=== PATIENT | female | born 1985 | race Caucasian/White ===

== ENCOUNTER → 2019-05-12 09:11 | Outpatient (CLI) | payer MEDICAID, SELFPAY ==
[2019-05-12 10:49] LABS: Anion Gap 5 (5-15); BUN 17 mg/dL (7-18); BUN/Creat Ratio 25.4 RATIO (10-20); Calcium,Total 9.3 mg/dL (8.5-10.1); Chloride 111 mmol/L (98-107); Cholesterol 154 mg/dL (200); Creatinine, Serum 0.67 mg/dL (0.55-1.02); EST Glomerular Filtration Rate 107 mL/min (>60); Est Glom Filt Rate - Afr Amer 130 mL/min (>60); Free T3 2.6 pg/mL (2.18-3.98); Glucose 94 mg/dL (74-106); High Density Lipoprotein 39 mg/dL; Potassium 4.4 mmol/L (3.5-5.1); Sodium Level 140 mmol/L (136-145); T4 Free Direct 0.74 ng/dL (0.76-1.46); Triglycerides 102 mg/dL; Very Low Density Lipoprotein 20 mg/dL (5-40)
== END ==
LOC: MTLAB 09:20
PROVIDERS: PCP Family Medicine; Referring Provider Family Medicine; Visit Provider Family Medicine
DX: R23.2 Flushing (principal); Z13.220 Encounter for screening for lipoid disorders; Z13.1 Encounter for screening for diabetes mellitus
CPT/HCPCS: 36415; 80048; 80061; 84439; 84443; 84481

== ENCOUNTER 2019-05-19 02:10 | Emergency (ER) | payer OTHER, SELFPAY ==
[2019-05-19 02:11] VITALS: BP 137/90; PULSE 85; RESP 14; TEMP 37; O2SAT 100; BMI 42.1
--- NOTE | 2019-05-19 02:20 | EKG12_ITS ---
Test Reason : SYNCOPE Blood Pressure : / mmHG Vent. Rate : 082 BPM Atrial Rate : 082 BPM P-R Int : 180 ms QRS Dur : 082 ms QT Int : 392 ms P-R-T Axes : 025 031 013 degrees QTc Int : 457 ms Normal sinus rhythm Normal ECG Confirmed by MOE EISENBERG MD ([id number]), editor dictionary JUANITA VINCENT ([id number]) on 05/22/2019 3:40:52 PM Referred By: KAVIN Confirmed By:MOE EISENBERG MD
--- NOTE | 2019-05-19 02:20 | ED.DCSUM_ITS ---
History of Present Illness Chief Complaint: General Illness Informant: Patient Onset: Today Current Severity: Moderate Maximum Severity: Moderate Narrative: Patient presents after syncopal episode at home. She states she went to bed around 11:00 last night and felt fine. She woke up approximately 45 minutes ago and felt very nauseated. She went to the bathroom and knelt in front of the toilet thinking she was going to vomit. She states she remembers feeling lightheaded, cold, sweaty. She states the next thing she knows she woke up on the floor and had urinated on herself. She was able to get up and get back to bed but still felt very queasy and weak. She denies recent illness. She states she has had slight increase in headaches recently which she attributed to increased stress. She been taking occasional naproxen for headaches. - Past Medical History (1) Sleep apnea Status: Chronic (2) H/O: hysterectomy Status: Chronic Past Medical History - Allergies and Home Meds Allergies/Adverse Reactions: Allergies Sulfa (Sulfonamide Antibiotics) Adverse Reaction (Mild, Verified 05/19/19 02:17) Nausea/Vom/Diarrhea Primary Care Physician: Juan Gil MD [Primary Care Provider] - As Needed Prior records reviewed: Yes Surgical History: hysterectomy Lives: With Family Smoking Status: Never smoker Review of Systems General: Denies: Chills, Fever Eyes: Denies: Visual changes - bilaterally ENT: Denies: Bilateral ear pain Cardiovascular: Denies: Chest pain, Palpitations Respiratory: Denies: Dyspnea, Cough Gastrointestinal: Reports: Abdominal pain, Nausea. Denies: Vomiting, Diarrhea Genitourinary: Denies: Dysuria Musculoskeletal: Denies: Extremity Pain Skin: Denies: Rash Neurological: Reports: Weakness. Denies: Headache Hematologic: Denies: Easy bruising, Easy bleeding Allergy: Denies: Uticaria Physical Exam Vital Signs/Narrative: Vital Signs Temp Pulse Resp BP Pulse Ox 05/19/19 02:11 98.6 F 85 14 137/90 H 100 Inital Vital Signs reviewed: Yes General: Well nourished, Well developed Head: Normocephalic ENT: Moist mucous membranes Neck: Supple Cardiovascular: Regular rate, Regular rhythm Respiratory: No distress, CTA bilaterally Abdomen: Soft, Nontender, Hyperactive bowel sounds Extremities: Nontender Skin: Normal color Neurological: Alert, Oriented x3, - - No focal deficits Psychological: Normal affect Diagnostic/Tx/Re-eval Laboratory Results 05/19/19 05/19/19 02:37 02:37 WBC 11.0 RBC 4.11 L Hgb 13.8 Hct 39.3 MCV 95.6 MCH 33.6 H MCHC 35.1 RDW Std Deviation 40.8 RDW Coeff of Ancelmo 11.8 Plt Count 293 MPV 10.2 Immature Gran % (Auto) 0.400 Neut % (Auto) 68.6 Lymph % (Auto) 23.6 [place] % (Auto) 5.7 Eos % (Auto) 1.2 Baso % (Auto) 0.5 Absolute Neuts (auto) 7.6 Absolute Lymphs (auto) 2.60 Nucleated RBC % 0 Sodium 137 Potassium 3.6 Chloride 108 H Carbon Dioxide 24.0 Anion Gap 5 BUN 20 H Creatinine 0.94 Estim Creat Clear Calc 75.88 Est GFR (MDRD) Af Amer 87 Est GFR (MDRD) Non-Af 72 BUN/Creatinine Ratio 21.2 H Glucose 89 Calcium 8.8 Total Bilirubin 0.40 Direct Bilirubin 0.13 AST 21 ALT 31 Alkaline Phosphatase 104 Total Protein 7.9 Albumin 4.0 Globulin 3.9 Lipase 101 - EKG Initial EKG Interpretation: Sinus Rhythm - Sinus 82 with no acute ischemia. - Medical Decision Making Patient was given IV fluids and Zofran followed by dose of Toradol for headache. On repeat evaluation she states the headache is completely resolved with the Toradol. At this time she would prefer just to go home. She is been up ambulating to the restroom without difficulty. She does complain of a sloshing feeling in her stomach. I will write her prescription for some Reglan at home to help increase transit time to the stomach to see if this will help her symptoms. She states she gets this fairly often. She will also be given prescription for Toradol tabs at home. ED Disposition - Plan for ED Patient: Disposition: Home or Assisted Living Diagnosis: Vasovagal syncope Instructions: SYNCOPE, Vasovagal Prescriptions: Metoclopramide [Reglan] 10 mg PO 4X/DAY PRN #20 tablet PRN Reason: Nausea Ketorolac [Toradol] 10 mg PO Q6H PRN #20 tablet PRN Reason: Pain Score 4-10/10 Referrals: Juan Gil MD [Primary Care Provider] - As Needed
--- NOTE | 2019-05-19 02:30 | ED.RN ---
NO OLD EKGS IN MUSE
[2019-05-19 02:44] LABS: Absolute Neutrophil Count 7.6 X10^3/uL (2.0-7.7); Basophil# 0.06 X10^3/uL; Basophil% 0.5 % (0-1); Eosinophil# 0.13 X10^3/uL; Eosinophils% 1.2 % (0-5); Hematocrit 39.3 % (37-47); Hemoglobin 13.8 g/dL (12.0-15.0); Lymphocyte % 23.6 % (19-41); Mean Corp Hgb Conc 35.1 g/dL (32-36); Mean Corpuscular Hgb 33.6 pg (27.0-32.0); Mean Corpuscular Volume 95.6 fL (81-99); Mean Platelet Vol. 10.2 fl (6.2-12.0); Monocyte# 0.63 X10^3/uL; Monocyte% 5.7 % (0-10); NRBC Flagged by Analyzer 0 % (0-5); Neutrophil # 7.55 X10^3/uL (2.7-7.7); Neutrophil % 68.6 % (47-70); Platelet Count 293 K/mm3 (150-450); RBC Distribution Width CV 11.8 % (11.6-14.6); RBC Distribution Width SD 40.8 fl (35.1-43.9); Red Blood Count 4.11 M/mm3 (4.2-5.4)
[2019-05-19] MEDS: 0.9% Normal Saline 1,000 ML 1000 ML IV (02:53)
[2019-05-19] MEDS: Ondansetron 4 MG/2 ML Vial IV (02:54)
[2019-05-19 03:08] LABS: AST(SGOT) 21 U/L (15-37); Alanine Aminotransfer ALT/SGPT 31 U/L (13-56); Alkaline Phosphatase 104 U/L (45-117); Anion Gap 5 (5-15); BUN 20 mg/dL (7-18); BUN/Creat Ratio 21.2 RATIO (10-20); Bilirubin, Direct 0.13 mg/dL (0.00-0.30); Calcium,Total 8.8 mg/dL (8.5-10.1); Chloride 108 mmol/L (98-107); Creatinine, Serum 0.94 mg/dL (0.55-1.02); EST Glomerular Filtration Rate 72 mL/min (>60); Est Glom Filt Rate - Afr Amer 87 mL/min (>60); Estimated Creatinine Clearance 75.88 ml/min; Globulin 3.9 g/dL (2.2-4.2); Glucose 89 mg/dL (74-106); Lipase 101 U/L (73-393); Potassium 3.6 mmol/L (3.5-5.1); Protein, Total 7.9 g/dL (6.4-8.2); Sodium Level 137 mmol/L (136-145)
[2019-05-19] MEDS: Ketorolac 30 MG/ML Syringe IV (03:23)
[2019-05-19 04:10] VITALS: PULSE 86; RESP 16; O2SAT 98
== END 2019-05-19 04:10 | disposition home or self-care (01) ==
PROVIDERS: Emergency Provider Emergency Medicine; PCP Family Medicine
DX: R55 Syncope and collapse (principal); R10.9 Unspecified abdominal pain; G47.30 Sleep apnea, unspecified
CPT/HCPCS: 80048; 80076; 83690; 85025; 93005; 96361; 96374; 96375; 99285; J7030; A4216; J2405

== ENCOUNTER 2019-12-24 19:44 | Emergency (ER) | payer MEDICAID, SELFPAY ==
[2019-12-24 19:48] VITALS: BP 138/95; PULSE 82; RESP 15; TEMP 36.4; O2SAT 98; BMI 44.6
--- NOTE | 2019-12-24 20:22 | ED.DCSUM_ITS ---
History of Present Illness Chief Complaint: Sore Throat Informant: Patient Onset: Yesterday Context: Gradual Onset Timing: Continuous Quality: sore Location: throat, worse on right Current Severity: Moderate Maximum Severity: Moderate Worsened by: Swallowing Associated Symptoms: Headache, Myalgias. Negative for: Nasal Congestion, Sinus Pressure, Nausea, Vomiting, Shortness of Breath, Chest Pain Narrative: Healthy 34-year-old who saw a white patch in the back of her throat and is concerned she may have strep. No fevers or chills. No coughing. Patient presents during the national coronavirus emergency declaration/pandemic. She denies any known contact with anyone infected with COVID-19. She denies traveling out of the immediate area recently. - Past Medical History (1) Depression Status: Chronic (2) Sleep apnea Status: Chronic Past Medical History - Allergies and Home Meds Allergies/Adverse Reactions: Allergies Sulfa (Sulfonamide Antibiotics) Adverse Reaction (Mild, Verified 12/24/19 19:44) Nausea/Vom/Diarrhea Primary Care Physician: Juan Gil MD [Primary Care Provider] - Surgical History: hysterectomy Lives: With Family Smoking Status: Never smoker Review of Systems General: Denies: Chills, Fever, Sweats Eyes: Denies: Visual changes - bilaterally, Diplopia ENT: Reports: Sore throat. Denies: Bilateral ear pain, Rhinorrhea Cardiovascular: Denies: Chest pain, Palpitations Respiratory: Denies: Dyspnea, Cough, Dyspnea on exertion Gastrointestinal: Denies: Abdominal pain, Nausea, Vomiting, Diarrhea, Melena, Hematochezia Genitourinary: Denies: Dysuria, Hematuria, Frequency Musculoskeletal: Reports: Myalgias. Denies: Neck pain, Back pain, Extremity Pain Skin: Denies: Rash, Wounds Neurological: Denies: Headache, Weakness, Numbness Physical Exam Vital Signs/Narrative: Vital Signs Temp Pulse Resp BP Pulse Ox 12/24/19 19:48 97.5 F L 82 15 138/95 H 98 Inital Vital Signs reviewed: Yes General: Well nourished, Well developed, - - Well-appearing no distress Head: Normocephalic, Atraumatic Eyes: Perrl, EOMI Nose: Normal Inspection, No Rhinorrhea Mouth/Throat: Normal Inspection, Airway Patent, Posterior Oropharyngeal Erythema Tonsils: Right Tonsilar Erythema, Left Tonsilar Erythema, Right Tonsilar Exudates Neck: Supple, No Meningismus, Anterior Lymphadenopathy - Mild, right submandibular. Negative for: Posterior Lymphadenopathy Respiratory: No distress Skin: Normal color, No rash, No Trauma Neurological: Alert, Oriented x3, Cranial nerves II-XII grossly intact, Normal Strength, Normal Sensation, Normal Gait Psychological: Normal affect, Normal Mood Diagnostic/Tx/Re-eval - Medical Decision Making Rapid strep returned negative. The swab was performed myself, which was a high- quality swab including the area of exudate. She was given dose of ibuprofen, Decadron, and a culture is sent. Suspect viral etiology, less likely mono or diphtheria. ED Disposition - Plan for ED Patient: Disposition: Home or Assisted Living Diagnosis: Exudative tonsillitis Instructions: ED Tonsillitis Referrals: Juan Gil MD [Primary Care Provider] - 3-5 Days if not improving Additional Instructions: Strep culture is sent. Rapid test is negative. Ibuprofen, sore throat sprays as needed. Stay hydrated.
[2019-12-24] MEDS: dexAMETHasone 4 MG Tablet 8 MG PO (20:39)
[2019-12-24] MEDS: Ibuprofen 600 MG Tablet PO (20:39)
[2019-12-24 21:31] VITALS: RESP 16
== END 2019-12-24 21:32 | disposition home or self-care (01) ==
PROVIDERS: Emergency Provider Emergency Medicine; PCP Family Medicine
DX: J03.90 Acute tonsillitis, unspecified (principal); F32.9 Major depressive disorder, single episode, unspecified; G47.30 Sleep apnea, unspecified; Z79.899 Other long term (current) drug therapy
CPT/HCPCS: 87077; 87880; 99282

== ENCOUNTER → 2020-01-01 16:40 | Outpatient (CLI) | payer MEDICAID, SELFPAY ==
[2019-12-24 19:48] VITALS: BMI 44.6
== END ==
PROVIDERS: PCP Family Medicine; Visit Provider Family Medicine
DX: N39.0 Urinary tract infection, site not specified (principal)
CPT/HCPCS: 87086; 87088

== ENCOUNTER → 2020-08-23 08:37 | Outpatient (CLI) | payer MEDICAID, SELFPAY ==
[2020-08-23 10:44] LABS: AST(SGOT) 18 U/L (15-37); Alanine Aminotransfer ALT/SGPT 28 U/L (13-56); Albumin, Serum 4.1 g/dL (3.2-5.0); Alkaline Phosphatase 105 U/L (45-117); Anion Gap 6 (5-15); BUN 12 mg/dL (7-18); BUN/Creat Ratio 17.6 RATIO (10-20); Chloride 106 mmol/L (98-107); Cholesterol 191 mg/dL (200); Creatinine, Serum 0.68 mg/dL (0.55-1.02); EST Glomerular Filtration Rate 104 mL/min (>60); Est Glom Filt Rate - Afr Amer 126 mL/min (>60); Glucose 85 mg/dL (74-106); High Density Lipoprotein 45 mg/dL; Potassium 3.6 mmol/L (3.5-5.1); Protein, Total 8.1 g/dL (6.4-8.2); Sodium Level 139 mmol/L (136-145); Thyroid Stim Hormone (TSH) 1.29 uIU/mL (0.358-3.74); Triglycerides 130 mg/dL; Very Low Density Lipoprotein 26 mg/dL (5-40)
== END ==
PROVIDERS: PCP Family Medicine; Referring Provider Family Medicine; Visit Provider Family Medicine
DX: G43.909 Migraine, unspecified, not intractable, without status migrainosus (principal); E66.9 Obesity, unspecified
CPT/HCPCS: 36415; 80053; 80061; 84443

== ENCOUNTER 2020-10-27 16:29 | Emergency (ER) | payer MEDICAID, SELFPAY ==
[2020-10-27 16:33] VITALS: BP 147/67; PULSE 111; RESP 16; TEMP 36.7; O2SAT 100; BMI 44.2
[2020-10-27 18:22] LABS: Absolute Lymphocyte Count 1.25 X10^3/uL (0.83-4.51); Absolute Neutrophil Count 5.5 X10^3/uL (2.0-7.7); Basophil# 0.03 X10^3/uL; Basophil% 0.4 % (0-1); Eosinophil# 0.06 X10^3/uL; Eosinophils% 0.8 % (0-5); Hematocrit 47.7 % (37-47); Lymphocyte # 1.25 X10^3/ul (0.83-4.51); Lymphocyte % 17.3 % (19-41); Mean Corp Hgb Conc 33.5 g/dL (32-36); Mean Corpuscular Hgb 32.8 pg (27.0-32.0); Mean Corpuscular Volume 97.7 fL (81-99); Mean Platelet Vol. 9.7 fl (6.2-12.0); Monocyte# 0.35 X10^3/uL; Monocyte% 4.9 % (0-10); NRBC Flagged by Analyzer 0 % (0-5); Neutrophil % 76.3 % (47-70); Platelet Count 246 K/mm3 (150-450); RBC Distribution Width CV 12.3 % (11.6-14.6); RBC Distribution Width SD 44.6 fl (35.1-43.9); Red Blood Count 4.88 M/mm3 (4.2-5.4); White Blood Count 7.2 K/mm3 (4.4-11.0)
[2020-10-27 18:34] LABS: Anion Gap 6 (5-15); BUN 11 mg/dL (7-18); BUN/Creat Ratio 15.4 RATIO (10-20); Calcium,Total 8.9 mg/dL (8.5-10.1); Chloride 103 mmol/L (98-107); Creatinine, Serum 0.72 mg/dL (0.55-1.02); EST Glomerular Filtration Rate 98 mL/min (>60); Est Glom Filt Rate - Afr Amer 119 mL/min (>60); Estimated Creatinine Clearance 94.17 ml/min; Glucose 109 mg/dL (74-106); Magnesium 2.3 mg/dL (1.6-2.6); Potassium 3.6 mmol/L (3.5-5.1); Sodium Level 138 mmol/L (136-145)
[2020-10-27] MEDS: 0.9% Normal Saline 1,000 ML 999 ML IV (18:47)
[2020-10-27] MEDS: Ondansetron 4 MG/2 ML Vial IV (18:49)
--- NOTE | 2020-10-27 19:07 | EDS_ITS ---
HPI History of Present Illness Chief Complaint: General Illness Narrative Narrative: Patient is a 35-year-old female who states she tested positive for Covid about 6 days ago. She states she is feeling tired and fatigued and has had bouts of nausea and vomiting. She states that she has had a few bouts of passing out when she throws up which she states can be normal for her. However based on her Covid diagnosis and persistent nausea her was concerned and had her brought in for evaluation [facility] Medical History Anxiety Migraine Home Medications montelukast 10 mg PO DAILY 12/24/19 [History Last Taken 12/23/19] omeprazole 40 mg PO DAILY 12/24/19 [History Last Taken 12/23/19] sumatriptan succinate 50 mg PO PRN PRN 12/24/19 [History Last Taken Unknown] dexamethasone [Decadron] 6 mg PO DAILY #7 tab 10/27/20 [Rx Last Taken Unknown] ondansetron 4 mg PO Q8H PRN 7 Days #21 tab 10/27/20 [Rx Last Taken Unknown] venlafaxine 150 mg PO DAILY 10/27/20 [History Last Taken Unknown] Allergy/AdvReac Type Severity Reaction Status Date / Time Sulfa (Sulfonamide AdvReac Mild Nausea/Vom/ Verified 10/27/20 16:33 Antibiotics) Diarrhea Social History Smoking Status: Never smoker [facility] ED Constitutional Constitutional ED: Reports chills, fever(s) and subjective ENT ENT ED: Reports sore throat Cardiovascular Cardiovascular: Denies chest pain or palpitations Respiratory/Chest Respiratory/Chest: Reports cough Gastrointestinal Gastrointestinal: Reports nausea and vomiting; Denies abdominal pain Genitourinary Genitourinary ED: Denies dysuria Musculoskeletal Musculoskeletal: Reports myalgias Integumentary Denies rash Neurologic Neurologic: Denies headache(s) EXAM Physical Exam Const Vital Signs: 10/27/20 16:33 10/27/20 18:18 Temperature 98.1 F Temperature Source Oral Pulse Rate 111 H Respiratory Rate 16 Respiratory Effort Normal Non-Labored Respiratory Pattern Normal Blood Pressure 147/67 H Blood Pressure Mean 93 Pulse Ox 100 Oxygen Delivery Method Room Air Positive well nourished and well developed General Appearance ED: well developed HEENT HEENT Narrative: Mucous membranes are slightly dry and tacky without airway edema or compromise Eyes PERRL and EOMs intact bilaterally Neck supple Lymph Lymphatic Narrative: Positive anterior cervical lymphadenopathy noted Chest Wall inspection of chest normal Resp normal respiratory effort and clear to auscultation bilaterally Cardio regular rate, regular rhythm and no murmurs GI GI Narrative: Abdomen is soft nontender nondistended with hyperactive bowel sounds no voluntary guarding or rigidity Extremity normal to inspection Neuro oriented x3 and CN's II-XII intact bilaterally Sensorium / Orientation: alert Psych mental status grossly normal Skin no rashes or lesions noted Skin Narrative: Skin turgor is normal MDM MDM MDM Narrative Medical decision making narrative: Patient presented to the ER afebrile and in no acute distress with a soft nonsurgical abdomen. Her symptoms are consistent with Covid and as she is not any type of respiratory distress I do not feel she needs admitted. Based on her reports of vomiting I did elect to check basic labs to make sure electrolytes were not grossly abnormal. Work-up revealed no acute finding. Therefore at this time after hydration patient is safe for discharge home with symptomatic medication. Lab Data Labs: Laboratory Results - last 24 hr 10/27/20 10/27/20 18:10 18:10 WBC 7.2 RBC 4.88 Hgb 16.0 H Hct 47.7 H MCV 97.7 MCH 32.8 H MCHC 33.5 RDW Std Deviation 44.6 H RDW Coeff of Ancelmo 12.3 Plt Count 246 MPV 9.7 Immature Gran % (Auto) 0.300 Neut % (Auto) 76.3 H Lymph % (Auto) 17.3 L [place] % (Auto) 4.9 Eos % (Auto) 0.8 Baso % (Auto) 0.4 Absolute Neuts (auto) 5.5 Absolute Lymphs (auto) 1.25 Nucleated RBC % 0 Sodium 138 Potassium 3.6 Chloride 103 Carbon Dioxide 29.0 Anion Gap 6 BUN 11 Creatinine 0.72 Estim Creat Clear Calc 94.17 Est GFR (MDRD) Af Amer 119 Est GFR (MDRD) Non-Af 98 BUN/Creatinine Ratio 15.4 Glucose 109 H Calcium 8.9 Magnesium 2.3 Discharge Plan Triage Chief Complaint: General Illness ED Provider: Destin Milner Dx/Rx/DC Orders Clinical Impression: COVID, Nausea & vomiting Instructions: Coronavirus Disease 2019 (COVID-19): Caring for Yourself or Others Prescriptions: New dexamethasone [Decadron] 6 mg tablet 6 mg PO DAILY Qty: 7 RF: 0 ondansetron 4 mg tablet,disintegrating 4 mg PO Q8H PRN (Reason: nausea and vomiting) 7 Days Qty: 21 RF: 0 No Action sumatriptan succinate 50 MG tablet 50 mg PO PRN PRN (Reason: Headache) RF: 0 omeprazole 40 MG capsule,delayed release(DR/EC) 40 mg PO DAILY RF: 0 montelukast 10 MG tablet 10 mg PO DAILY RF: 0 venlafaxine 150 mg capsule,extended release 24hr 150 mg PO DAILY RF: 0 Primary Care Provider: Juan Gil Referrals: Juan Gil MD [Primary Care Provider] - 1 Week if not improving Disposition Disposition: Home, Self Care
[2020-10-27 20:06] VITALS: BP 116/74; PULSE 81; RESP 16; RESP 18; TEMP 36.1; O2SAT 99
== END 2020-10-27 20:07 | disposition home or self-care (01) ==
PROVIDERS: Emergency Provider Emergency Medicine; PCP Family Medicine
DX: U07.1 COVID-19 (principal); R11.2 Nausea with vomiting, unspecified; F41.9 Anxiety disorder, unspecified; G43.909 Migraine, unspecified, not intractable, without status migrainosus; Z79.899 Other long term (current) drug therapy
CPT/HCPCS: 80048; 83735; 85025; 96361; 96374; 99284; J7030; A4216; J2405

== ENCOUNTER → 2020-11-04 14:58 | Outpatient (CLI) | payer MEDICAID, SELFPAY ==
[2020-11-04 17:44] LABS: Hematocrit 44.7 % (37-47); Hemoglobin 15.3 g/dL (12.0-15.0); Mean Corp Hgb Conc 34.2 g/dL (32-36); Mean Corpuscular Hgb 32.4 pg (27.0-32.0); Mean Corpuscular Volume 94.7 fL (81-99); Mean Platelet Vol. 10.5 fl (6.2-12.0); Platelet Count 390 K/mm3 (150-450); RBC Distribution Width CV 11.9 % (11.6-14.6); RBC Distribution Width SD 41.4 fl (35.1-43.9); Red Blood Count 4.72 M/mm3 (4.2-5.4); White Blood Count 11.3 K/mm3 (4.4-11.0)
[2020-11-04 17:55] LABS: ALB/GLOB Ratio 0.9 RATIO (0.9-2.4); AST(SGOT) 31 U/L (15-37); Alanine Aminotransfer ALT/SGPT 78 U/L (13-56); Alkaline Phosphatase 109 U/L (45-117); Anion Gap 7 (5-15); BUN 12 mg/dL (7-18); BUN/Creat Ratio 19.3 RATIO (10-20); Calcium,Total 9.2 mg/dL (8.5-10.1); Chloride 102 mmol/L (98-107); Creatinine, Serum 0.62 mg/dL (0.55-1.02); EST Glomerular Filtration Rate 116 mL/min (>60); Est Glom Filt Rate - Afr Amer 140 mL/min (>60); Globulin 4.5 g/dL (2.2-4.2); Glucose 90 mg/dL (74-106); Potassium 3.4 mmol/L (3.5-5.1); Protein, Total 8.5 g/dL (6.4-8.2); Sodium Level 137 mmol/L (136-145)
== END ==
PROVIDERS: PCP Family Medicine; Referring Provider Nurse Practitioner Family; Visit Provider Nurse Practitioner Family
DX: U07.1 COVID-19 (principal)
CPT/HCPCS: 36415; 80053; 85027

== ENCOUNTER 2021-10-09 10:18 | Outpatient (CLI) | payer MEDICAID, SELFPAY ==
[2021-10-09 14:32] LABS: Anion Gap 7 (5-15); BUN 10 mg/dL (7-18); BUN/Creat Ratio 15.4 RATIO (10-20); Calcium,Total 9.3 mg/dL (8.5-10.1); Chloride 103 mmol/L (98-107); Creatinine, Serum 0.65 mg/dL (0.55-1.02); EST Glomerular Filtration Rate 109 mL/min (>60); Est Glom Filt Rate - Afr Amer 132 mL/min (>60); Follicle Stimulating Hormone 5.5 mIU/mL; Glucose 94 mg/dL (74-106); Luteinizing Hormone 3.7 mIU/mL; Potassium 3.6 mmol/L (3.5-5.1); Sodium Level 138 mmol/L (136-145)
== END 2021-10-09 23:59 | disposition home or self-care (01) ==
LOC: MFPLAB 10:19
PROVIDERS: PCP Nurse Practitioner Family; Referring Provider Nurse Practitioner Family; Visit Provider Nurse Practitioner Family
DX: R23.2 Flushing (principal)
CPT/HCPCS: 36415; 80048; 83001; 83002

== ENCOUNTER → 2022-06-23 | Outpatient (CLI) | payer MEDICAID, SELFPAY ==
[2022-06-23 18:53] LABS: AST(SGOT) 19 U/L (15-37); Alanine Aminotransfer ALT/SGPT 35 U/L (13-56); Albumin, Serum 4.4 g/dL (3.2-5.0); Alkaline Phosphatase 123 U/L (45-117); Anion Gap 8 (5-15); BUN 12 mg/dL (7-18); Calcium,Total 9.8 mg/dL (8.5-10.1); Chloride 100 mmol/L (98-107); Cholesterol 225 mg/dL (200); EST Glomerular Filtration Rate 99 mL/min (>60); Est Glom Filt Rate - Afr Amer 120 mL/min (>60); Ferritin 367 ng/mL (8-252); Globulin 4.2 g/dL (2.2-4.2); Glucose 102 mg/dL (74-106); High Density Lipoprotein 42 mg/dL; Potassium 3.2 mmol/L (3.5-5.1); Protein, Total 8.6 g/dL (6.4-8.2); Sodium Level 134 mmol/L (136-145); Thyroid Stim Hormone (TSH) 1.41 uIU/mL (0.358-3.74); Triglycerides 253 mg/dL; Very Low Density Lipoprotein 51 mg/dL (5-40)
[2022-06-23 18:57] LABS: Vitamin B12 752 pg/mL (211-911)
[2022-06-23 19:34] LABS: Hemoglobin A1c 5.4 % (3.8-5.6)
[2022-06-26 15:24] LABS: Vitamin D 1,25-Dihydroxy 48.3 pg/mL (24.8-81.5)
== END | disposition home or self-care (01) ==
LOC: MFPLAB 16:49
PROVIDERS: PCP Family Medicine; Visit Provider Family Medicine
DX: F41.1 Generalized anxiety disorder (principal); Z68.41 Body mass index [BMI] 40.0-44.9, adult; K21.9 Gastro-esophageal reflux disease without esophagitis
CPT/HCPCS: 36415; 80053; 80061; 82607; 82652; 82728; 83036; 84443

== ENCOUNTER → 2022-09-14 | Outpatient (CLI) | payer MEDICAID, SELFPAY ==
[2022-09-14 15:57] LABS: Anion Gap 5 (5-15); BUN 14 mg/dL (7-18); BUN/Creat Ratio 19.1 RATIO (10-20); Calcium,Total 9.6 mg/dL (8.5-10.1); Chloride 104 mmol/L (98-107); Creatinine, Serum 0.73 mg/dL (0.55-1.02); EST Glomerular Filtration Rate 95 mL/min (>60); Est Glom Filt Rate - Afr Amer 114 mL/min (>60); Glucose 78 mg/dL (74-106); Potassium 3.8 mmol/L (3.5-5.1); Sodium Level 134 mmol/L (136-145)
== END | disposition home or self-care (01) ==
LOC: MFPLAB 11:31
PROVIDERS: PCP Family Medicine; Visit Provider Family Medicine
DX: E87.6 Hypokalemia (principal)
CPT/HCPCS: 36415; 80048

== ENCOUNTER → 2022-10-29 | Outpatient (CLI) | payer MEDICAID, SELFPAY | END | disposition home or self-care (01) | LOC: SL 20:21 | PROVIDERS: PCP Family Medicine; Referring Provider Nurse Practitioner Acute Care; Visit Provider Nurse Practitioner Acute Care | DX: G47.30 Sleep apnea, unspecified (principal) | CPT/HCPCS: 95811 ==

== ENCOUNTER → 2022-11-23 | Outpatient (CLI) | payer MEDICAID, SELFPAY | END | disposition home or self-care (01) | LOC: SL 08:29 | PROVIDERS: PCP Family Medicine; Visit Provider Nurse Practitioner Acute Care | DX: G47.33 Obstructive sleep apnea (adult) (pediatric) (principal); Z99.89 Dependence on other enabling machines and devices ==

== ENCOUNTER 2024-04-18 07:36 | Emergency (ER) | payer OTHER, SELFPAY ==
[2024-04-18 07:38] VITALS: BP 147/100; PULSE 123; RESP 16; TEMP 37; O2SAT 100; BMI 41.1
--- NOTE | 2024-04-18 07:54 | EX.ED.VIS.UR ---
HPI HPI - URI History of Present Illness Chief Complaint: Shortness of Breath Narrative Narrative: 39-year-old female past medical history of asthma and seasonal allergies, GERD, and anxiety presents with shortness of breath and cough that she has had for at least a week. She states she began coughing about a week ago, and started day for of Augmentin [facility]. She is also on an albuterol inhaler. She states that she feels short of breath and seems to be worsening. She has had subjective fever as well and gets body aches when she has that fever. She notes no improvement after antibiotics. She has not been on steroids for her asthma in the past. She denies any rhinorrhea or sore throat. No exacerbating or alleviating factors. Feels her albuterol inhaler is not working as well. She states that her symptoms are all in her chest. ROS ROS ED ROS Narrative Constitutional: Positive fever, no chills. HEENT: No sore throat. No neck pain. No rhinorrhea. Cardiovascular: No chest pain. No palpitations. No pedal edema. Respiratory: Positive cough, positive shortness of breath. Abdominal: No abdominal pain. No nausea. No vomiting. Genitourinary: No dysuria. No hematuria. Musculoskeletal: Positive myalgias and arthralgias with fever. Neurologic: No headaches. No dizziness. No lightheadedness. Skin: No rash. No change in color. [facility] Medical History Influenza A Anxiety Migraine Home Medications ?Medication ?Instructions ?Recorded ?Last Taken ?Type montelukast 10 mg tablet 10 mg PO DAILY 12/24/19 12/23/19 History omeprazole 40 mg capsule,delayed 40 mg PO DAILY 12/24/19 12/23/19 History release sumatriptan succinate 50 mg tablet 50 mg PO PRN PRN Headache 12/24/19 Unknown History ondansetron 4 mg disintegrating 4 mg PO Q8H PRN nausea and 10/27/20 Unknown Rx tablet vomiting 7 days #21 tabs venlafaxine 150 mg 150 mg PO DAILY 10/27/20 Unknown History capsule,extended release 24 hr hydrochlorothiazide 25 mg tablet 25 mg PO DAILY 10/15/22 Unknown History phentermine 37.5 mg capsule 37.5 mg PO DAILY 10/15/22 Unknown History prednisone 20 mg tablet 40 mg (2 x 20 mg) PO DAILY 7 days 04/18/24 Unknown Rx #14 tabs Allergy/AdvReac Type Severity Reaction Status Date / Time Sulfa (Sulfonamide AdvReac Mild Nausea/Vom/ Verified 02/16/24 13:15 Antibiotics) Diarrhea Social History Smoking Status: Never smoker EXAM Physical Exam Narrative Exam Narrative: Afebrile. Vital signs noted. Nontoxic-appearing. Cardiovascular examination reveals mild tachycardia. Respiratory examination shows no distress, no accessory muscle use. She does have a cough on examination with occasional expiratory wheezing in the right base greater than the left. Moving a good amount of air. Abdomen is soft and nontender with positive bowel sounds. Neurological examination is nonfocal and nonlateralizing. Awake, alert, and appropriate, moving all extremities. Const Vital Signs: 04/18/24 07:38 04/18/24 07:51 04/18/24 08:21 Temperature 98.6 F Temperature Source Oral Pulse Rate 123 H 81 Respiratory Rate 16 17 Respiratory Effort Short of Breath Respiratory Pattern Normal Normal Blood Pressure 147/100 H Blood Pressure Mean 115 Pulse Ox 100 Oxygen Delivery Method Room Air Room Air MDM MDM MDM Narrative Medical decision making narrative: Differential diagnosis does include but not limited to pneumonia versus pneumothorax versus viral syndrome. Her antibiotics may be an effective as this may be a viral syndrome. Her pulse ox is 100% on room air without evidence of hypoxia. While pulmonary embolism is in the differential, her Wells score is low, and it seems to be more of an infectious process that has been ongoing for approximately a week. She will be swabbed for COVID, influenza, and RSV and given an albuterol aerosolized treatment. Chest x-ray in 2 views will be obtained to rule out pneumonia and pneumothorax. History and physical does not support the diagnosis of pneumothorax. On my independent interpretation of her chest x-ray, there is no evidence of pneumonia or pneumothorax. I reviewed the radiology report which confirms my independent interpretation. I reviewed her respiratory swab and it is negative for COVID, influenza, and RSV. Upon repeat examination, she is resting comfortably with her family at the bedside. She is no longer tachycardic. At this point in time, if she can be discharged to follow-up with her primary care provider. She may be having more of an asthma exacerbation as well. She was told with bronchitis that she could call for weeks. She has already been started on antibiotic by [facility] so she was advised to finish this. She will continue to use her albuterol inhaler 1 to 2 puffs every 4-6 hours as needed. I will start her on a steroid burst of 40 mg for the next 7 days as well. Return instructions to the emergency department were reviewed. Disposition is discharged home in stable condition. History & Record Review Discussion w/independent historian: Patient Additional record(s) reviewed:: Prior ED visit Radiography Diagnostic Testing: Clinical Impression(s) from Imaging Studies Chest X-Ray 04/18/24 08:08 IMPRESSION: No acute cardiopulmonary process. Reading Location: [facility] Discharge Plan Triage Chief Complaint: Shortness of Breath ED Provider: Nadeem Mayorga Dx/Rx/DC Orders Clinical Impression: Bronchitis, Asthma Instructions: ED Asthma, Acute (Adult), ED Bronchitis with Wheezing (Adult) Prescriptions: New prednisone 20 mg tablet 40 mg PO DAILY 7 Days Qty: 14 0RF No Action hydrochlorothiazide 25 mg tablet 25 mg PO DAILY phentermine 37.5 mg capsule 37.5 mg PO DAILY Rx Instructions: must administer 30 minutes before or 1-2 hours after breakfast sumatriptan succinate 50 MG tablet 50 mg PO PRN PRN (Reason: Headache) omeprazole 40 MG capsule,delayed release(DR/EC) 40 mg PO DAILY montelukast 10 MG tablet 10 mg PO DAILY venlafaxine 150 mg capsule,extended release 24hr 150 mg PO DAILY Patient Comments: TAKE 1 CAPSULE BY MOUTH EVERY DAY ondansetron 4 mg tablet,disintegrating 4 mg PO Q8H PRN (Reason: nausea and vomiting) 7 Days Qty: 21 0RF Primary Care Provider: Mike Hawley Referrals: Mike Hawley MD [Primary Care Provider] - 1 Week if not improving NOT,DEFINED [Non-Staff] - Activity Restrictions/Additional Instructions: Use your albuterol inhaler 1 to 2 puffs inhaled every 4-6 hours as needed for shortness of breath. Finish your antibiotic that you were given. Start steroid burst for the next 7 days. Return with increased difficulty breathing, new or worsening symptoms. Print Language: Syrian Disposition Disposition: Home, Self Care
--- NOTE | 2024-04-18 08:08 | RAD_ITS ---
EXAM: XR Chest, 2 Views CLINICAL INDICATION: TECHNIQUE: Frontal and lateral views of the chest. COMPARISON: No relevant prior studies available. FINDINGS: LUNGS AND PLEURAL SPACES: Unremarkable. No consolidation. No pneumothorax. HEART: Unremarkable. No cardiomegaly. MEDIASTINUM: Unremarkable. Normal mediastinal contour. BONES/JOINTS: Unremarkable. No acute fracture. RAD/Chest PA and Lateral IMPRESSION: No acute cardiopulmonary process. Reading [facility]
[2024-04-18 08:21] VITALS: PULSE 81; RESP 17
[2024-04-18] MEDS: Albuterol 2.5 MG/3 ML VIAL.NEB. INHALATION (08:21)
[2024-04-18 09:59] VITALS: BP 136/78; PULSE 98; RESP 16; TEMP 37.2; O2SAT 99
== END 2024-04-18 09:59 | disposition home or self-care (01) ==
PROVIDERS: Emergency Provider Emergency Medicine; PCP Family Medicine; Visit Provider Emergency Medicine
DX: R06.02 Shortness of breath (principal); J45.909 Unspecified asthma, uncomplicated; K21.9 Gastro-esophageal reflux disease without esophagitis; Z79.899 Other long term (current) drug therapy
CPT/HCPCS: 71046; 87631; 94640; 99282

== ENCOUNTER → 2024-04-27 | Outpatient (CLI) | payer OTHER, SELFPAY ==
[2024-04-27 10:46] LABS: Absolute Lymphocyte Count 2.41 X10^3/uL (0.83-4.51); Absolute Neutrophil Count 9.3 X10^3/uL (2.0-7.7); Basophil# 0.05 X10^3/uL; Basophil% 0.4 % (0-1); Eosinophils% 0.8 % (0-5); Hematocrit 43.9 % (37-47); Hemoglobin 14.7 g/dL (12.0-15.0); Lymphocyte # 2.41 X10^3/ul (0.83-4.51); Lymphocyte % 19.2 % (19-41); Mean Corp Hgb Conc 33.5 g/dL (32-36); Mean Corpuscular Hgb 32.9 pg (27.0-32.0); Mean Corpuscular Volume 98.2 fL (81-99); Mean Platelet Vol. 10.2 fl (6.2-12.0); Monocyte# 0.59 X10^3/uL; Monocyte% 4.7 % (0-10); NRBC Flagged by Analyzer 0 % (0-5); Neutrophil # 9.29 X10^3/uL (2.7-7.7); Neutrophil % 74.1 % (47-70); Platelet Count 365 K/mm3 (150-450); RBC Distribution Width CV 12.4 % (11.6-14.6); RBC Distribution Width SD 44.4 fl (35.1-43.9); Red Blood Count 4.47 M/mm3 (4.2-5.4); White Blood Count 12.5 K/mm3 (4.4-11.0)
[2024-04-27 11:07] LABS: Vitamin D,25 Hydroxy 24.9 ng/mL
[2024-04-27 11:56] LABS: ALB/GLOB Ratio 0.9 RATIO (0.9-2.4); AST(SGOT) 21 U/L (15-37); Alanine Aminotransfer ALT/SGPT 48 U/L (13-56); Albumin, Serum 3.9 g/dL (3.2-5.0); Alkaline Phosphatase 110 U/L (45-117); Anion Gap 10 (5-15); BUN 13 mg/dL (7-18); BUN/Creat Ratio 17.6 RATIO (10-20); Calcium,Total 9.6 mg/dL (8.5-10.1); Chloride 103 mmol/L (98-107); Cholesterol 176 mg/dL (200); Creatinine, Serum 0.74 mg/dL (0.55-1.02); EST Glomerular Filtration Rate 93 mL/min (>60); Est Glom Filt Rate - Afr Amer 113 mL/min (>60); Globulin 4.4 g/dL (2.2-4.2); Glucose 93 mg/dL (74-106); High Density Lipoprotein 49 mg/dL; Potassium 3.7 mmol/L (3.5-5.1); Protein, Total 8.3 g/dL (6.4-8.2); Sodium Level 137 mmol/L (136-145); Thyroid Stim Hormone (TSH) 0.893 uIU/mL (0.358-3.740); Triglycerides 170 mg/dL; Very Low Density Lipoprotein 34 mg/dL (5-40)
== END | disposition home or self-care (01) ==
LOC: MTLAB 07:47
PROVIDERS: PCP Family Medicine; Referring Provider Family Medicine; Visit Provider Family Medicine
DX: E87.6 Hypokalemia (principal); R53.83 Other fatigue; Z13.220 Encounter for screening for lipoid disorders
CPT/HCPCS: 36415; 80053; 80061; 82306; 84443; 85025

== ENCOUNTER → 2024-06-12 | Outpatient (CLI) | payer OTHER, SELFPAY ==
[2024-06-12 10:41] LABS: Color, Urine Straw (Yellow); Glucose, Dipstick Normal (Normal); Ketone-Dipstick Negative (Negative); Leukocyte Esterase-Dipstick 500 /ul (Negative); Nitrite-Dipstick Negative (Negative); Occult Blood-Urine 250 /ul (Negative); Protein-Dipstick 30 mg/dl (Negative); Specific Gravity, Urine 1.005 (1.002-1.030); Urine Bilirubin Dipstick Negative (Negative); Urine Clarity Sl. Cloudy (Clear); Urine Urobilinogen Normal (Normal); Urine pH 6.5 (5.0 - 8.0)
[2024-06-12 10:53] LABS: White Blood Cells >100 SEEN /hpf (0-5)
[2024-06-12 10:55] LABS: Red Blood Cells-Urine 10-25 SEEN /hpf (0-5)
[2024-06-12 10:56] LABS: Squamous Epithelial Cells - UA 5-10 SEEN /hpf (5-10)
[2024-06-12 10:57] LABS: Bacteria 2+ /hpf (None Seen); Mucous, Urine 1+ /hpf (<or=2+)
== END | disposition home or self-care (01) ==
LOC: LABSPEC 09:22
PROVIDERS: PCP Family Medicine; Visit Provider Nurse Practitioner Family
DX: R30.0 Dysuria (principal)
CPT/HCPCS: 81001; 87077; 87086; 87088; 87186

== ENCOUNTER 2024-12-08 17:07 | Emergency (ER) | payer OTHER, SELFPAY ==
[2024-12-08 17:07] VITALS: BP 197/127; PULSE 102; RESP 20; TEMP 37.1; O2SAT 99; BMI 43.8
[2024-12-08 17:11] VITALS: BP 179/127; PULSE 88; RESP 18; O2SAT 99
--- NOTE | 2024-12-08 19:55 | ED.RN ---
Patient's spouse to the triage desk x2 asking why patients are going back before his . This nurse explained that certain patients may be eligible for a hallway bed and that we currently don't have any room available. This RN then explained that the patient is not eligible for a hallway bed due to having abdominal pain and the need for an actual be and not a chair which is what the hallway beds are. Patient's spouse said the patient should get to decide what they need and then asked what allows the nurse to make that decision. This RN explained that we are trained to assess patients and prioritize them based on the criticality of their illness and the resources we have available. It was explained to the spouse that the patient is toward the top of the list of patients to go back,. Patient continues to argue with this nurse. Security called to triage. Patient's spouse demands to see nursing mechanical supervisor. Charge nurse Rocío called to desk.
--- NOTE | 2024-12-08 19:59 | ED.RN ---
pt's spouse arguing with triage nurse MUSTAPHA Carias. this nurse went to speak with pt's spouse along with MUSTAPHA Carias and security attempting to explain that the er is full. pt spouse complaining about other pt's going back before his , requesting to go to a hallway bed. attempting to explain that the er is full, spouse continued to argue with staff.
[2024-12-08 20:11] LABS: Hematocrit 44.6 % (37-47); Hemoglobin 15.6 g/dL (12.0-15.0); Immature Granulocytes Count 0.040 X10^3/uL (0.0-0.0); Mean Corp Hgb Conc 35.0 g/dL (32-36); Mean Corpuscular Volume 96.1 fL (81-99); Mean Platelet Vol. 10.2 fl (6.2-12.0); NRBC Flagged by Analyzer 0 % (0-5); Platelet Count 359 K/mm3 (150-450); RBC Distribution Width CV 12.4 % (11.6-14.6); RBC Distribution Width SD 43.2 fl (35.1-43.9); Red Blood Count 4.64 M/mm3 (4.2-5.4); White Blood Count 13.4 K/mm3 (4.4-11.0)
[2024-12-08 20:33] LABS: AST(SGOT) 26 U/L (<=31); Alanine Aminotransfer ALT/SGPT 23 U/L (<=34); Albumin, Serum 4.8 g/dL (3.5-5.0); Alkaline Phosphatase 118 U/L (35-104); Anion Gap 17 (5-15); BUN 15 mg/dL (4-19); BUN/Creat Ratio 20.4 RATIO (10-20); Calcium,Total 9.7 mg/dL (7.6-11.0); Carbon Dioxide 21.5 mmol/L (21.0-32.0); Chloride 100 mmol/L (98-108); Estimated Creatinine Clearance 129.27 ml/min (50-250); Globulin 3.4 g/dL (2.2-4.2); Glucose 165 mg/dL (70-99); Lipase 25 U/L (13-75); Potassium 3.1 mmol/L (3.3-5.1)
[2024-12-08 21:05] VITALS: BP 168/111; PULSE 85; RESP 20; TEMP 36.9; O2SAT 98
[2024-12-08 21:22] LABS: Mucous, Urine 0 SEEN /hpf (<or=2+)
[2024-12-08 21:45] LABS: Color, Urine Yellow (Yellow); Glucose, Dipstick Normal (Normal); Ketone-Dipstick Negative (Negative); Leukocyte Esterase-Dipstick 25 /ul (Negative); Nitrite-Dipstick Negative (Negative); Occult Blood-Urine 250 /ul (Negative); Protein-Dipstick 30 mg/dl (Negative); Specific Gravity, Urine 1.020 (1.002-1.030); Urine Bilirubin Dipstick Negative (Negative)
--- NOTE | 2024-12-08 21:51 | EX.ED.DYSGE1 ---
HPI History of Present Illness Chief Complaint: Abd Pain Narrative Narrative: Patient is a 39-year-old female with past medical history anxiety, migraine headache, who presents to the emergency department the chief complaint of abdominal pain. According to the patient earlier today she developed sudden onset of severe abdominal pain on the left lower side. She states that she was at work when this occurred and notes that this took her breath away. She states that she had a hysterectomy in her 20s. She states that she has had ruptured cyst in the past but has not had one in a significant amount of time and states that this does feel similar to this. Patient denies any previous abdominal surgeries. Patient denies any sick contacts. Patient states that the pain has gotten better PFSH [facility] Medical History Non-smoker Influenza A Anxiety Migraine Home Medications ?Medication ?Instructions ?Recorded ?Last Taken ?Type montelukast 10 mg tablet 10 mg PO DAILY 12/24/19 12/23/19 History omeprazole 40 mg capsule,delayed 40 mg PO DAILY 12/24/19 12/23/19 History release sumatriptan succinate 50 mg tablet 50 mg PO PRN PRN Headache 12/24/19 Unknown History ondansetron 4 mg disintegrating 4 mg PO Q8H PRN nausea and 10/27/20 Unknown Rx tablet vomiting 7 days #21 tabs venlafaxine 150 mg 150 mg PO DAILY 10/27/20 Unknown History capsule,extended release 24 hr hydrochlorothiazide 25 mg tablet 25 mg PO DAILY 10/15/22 Unknown History dicyclomine 20 mg tablet 20 mg PO TID PRN abdominal pain 12/08/24 Unknown Rx #20 tabs estradiol 1 mg tablet 1 mg PO DAILY 12/08/24 Unknown History ondansetron 4 mg disintegrating 4 mg PO Q6H PRN nausea and 12/08/24 Unknown Rx tablet vomiting #20 tabs Allergy/AdvReac Type Severity Reaction Status Date / Time Sulfa (Sulfonamide AdvReac Mild Nausea/Vom/ Verified 12/08/24 17:08 Antibiotics) Diarrhea Social History Smoking Status: Never smoker ROS ROS ED ROS Narrative Constitutional: Denies any fevers, chills, headaches Eyes: Denies double vision Cardiovascular: Denies chest pain Respiratory: Shortness of breath Abdomen: Complains of abdominal pain as noted above denies nausea vomiting diarrhea : Denies any urinary symptoms Neurological: Denies any numbness, weakness, tingling Musculoskeletal: Denies back pain Skin: Denies any rashes or lesions EXAM Physical Exam Narrative Exam Narrative: General: Patient was lying in bed rest comfortably did not appear to be in acute distress Head: Atraumatic, normocephalic Eyes: PERRL bilaterally, EOMI bilaterally, no conjunctival injection noted Neck: Soft, supple, trachea midline Cardiovascular: Regular rate and rhythm no murmurs gallops rubs noted Respiratory: Clear to auscultation bilaterally Abdomen: Soft, nondistended, tenderness to palpation left lower quadrant no rebound or guarding on exam Extremities: +5/5 strength noted in the bilateral upper and lower extremities Neurological: Patient follow commands knew that she was at [facility] the year is 2024 Skin: Warm, dry, intact no rashes or lesions noted Const Vital Signs: 12/08/24 17:07 12/08/24 17:11 12/08/24 21:05 Temperature 98.7 F 98.5 F Temperature Source Oral Oral Pulse Rate 102 H 88 85 Respiratory Rate 20 H 18 20 H Blood Pressure 197/127 H 179/127 H 168/111 H Blood Pressure Mean 150 144 130 Pulse Ox 99 99 98 Oxygen Delivery Method Room Air Room Air Room Air MDM MDM MDM Narrative Medical decision making narrative: Patient is a 39-year-old female who presented to the emergency department the chief complaint of abdominal pain. On the differential diagnose includes but not limited to diverticulitis, perforated diverticulum, bowel obstruction, ruptured cyst, ectopic , ovarian torsion, AAA. Once workup is obtained reviewed she will be reevaluated. Patient given IV fluids, morphine Zofran. Patient's patient's CBC reviewed which showed a leukocytosis of 13,000 this is likely reactive, he was stable at 15.6, plate count 359. Patient sodium normal 139, [place] was low at 3.1 indicating hypokalemia she was given 40 mill equivalents of oral supplementation here in the emergency department. Creatinine normal at 0.73. Patient's AST and ALT are 26 and 23 respectively lipase was normal at 25. Patient urinalysis showed 250 blood, negative nitrites, 25 leukocyte esterase 5-10 white cells with 1+ bacteria however this appears to be a contaminated sample at 1025 squamous epithelial cells she has no urinary symptoms associated with this. Patient CT ab pelvis with IV contrast showed evidence of cystitis and left ureteritis/pyelitis. No discrete evidence of pyelonephritis although this is primarily a clinical diagnosis correlate with laboratory/urinalysis findings that this does not align with this. Patient has no CVA tenderness on exam again. She does not have any urinary symptoms to suggest this either. The urine was sent for culture. On reevaluation the patient she is feeling much better. Significant other at bedside was concerned about a ruptured cyst and seen this better on ultrasound I advised that we can perform the ultrasound however I am not exactly sure that this will be helpful and even if we do see cyst the management will still be the same. They ultimately declined on performing ultrasound and would like to go home at this point time. They are advised to return with worsening symptoms or any concerns. Patient was given prescription for Bentyl and Zofran was also advised to use ibuprofen Advil Aleve etc. for pain control. All question concerns answered she was discharged home in stable condition. Lab Data Labs: Laboratory Results - last 24 hr 12/08/24 12/08/24 20:05 21:05 WBC 13.4 H RBC 4.64 Hgb 15.6 H Hct 44.6 MCV 96.1 MCH 33.6 H MCHC 35.0 RDW Std Deviation 43.2 RDW Coeff of Ancelmo 12.4 Plt Count 359 MPV 10.2 Immature Gran % (Auto) 0.300 Neut % (Auto) 73.8 H Lymph % (Auto) 20.9 [place] % (Auto) 3.9 Eos % (Auto) 0.7 Baso % (Auto) 0.4 Absolute Neuts (auto) 9.9 H Absolute Lymphs (auto) 2.80 Nucleated RBC % 0 Sodium 139 Potassium 3.1 L Chloride 100 Carbon Dioxide 21.5 Anion Gap 17 H BUN 15 Creatinine 0.73 Estim Creat Clear Calc 129.27 Est GFR (MDRD) Non-Af 107 BUN/Creatinine Ratio 20.4 H Glucose 165 H Calcium 9.7 Total Bilirubin 0.36 AST 26 ALT 23 Alkaline Phosphatase 118 H Total Protein 8.2 Albumin 4.8 Globulin 3.4 Albumin/Globulin Ratio 1.4 Lipase 25 Urine Color Yellow Urine Clarity Cloudy Urine pH 6.0 Ur Specific [place] 1.020 Urine Protein 30 H Urine Glucose (UA) Normal Urine Ketones Negative Urine Occult Blood 250 H Urine Nitrite Negative Urine Bilirubin Negative Urine Urobilinogen Normal Ur Leukocyte Esterase 25 H Urine RBC 25-50 SEEN Urine WBC 5-10 SEEN Ur Squamous Epith Cells 10-25 SEEN Urine Bacteria 1+ Urine Mucus 0 SEEN Radiography Diagnostic Testing: Clinical Impression(s) from Imaging Studies Abdomen/Pelvis CT 12/08/24 21:55 IMPRESSION: Evidence of cystitis and left ureteritis/pyelitis. No discrete evidence for pyelonephritis, although this is primarily a clinical diagnosis. Correlate with laboratory/urinalysis findings. Reading Location: [facility] Discharge Plan Triage Chief Complaint: Abd Pain Other Complaint: Complaint ED Provider: Kota Whitaker Dx/Rx/DC Orders Clinical Impression: Abdominal pain, History of migraine, History of anxiety Prescriptions: New dicyclomine 20 mg tablet 20 mg PO TID PRN (Reason: abdominal pain) Qty: 20 0RF ondansetron 4 mg tablet,disintegrating 4 mg PO Q6H PRN (Reason: nausea and vomiting) Qty: 20 0RF No Action hydrochlorothiazide 25 mg tablet 25 mg PO DAILY sumatriptan succinate 50 MG tablet 50 mg PO PRN PRN (Reason: Headache) omeprazole 40 MG capsule,delayed release(DR/EC) 40 mg PO DAILY montelukast 10 MG tablet 10 mg PO DAILY venlafaxine 150 mg capsule,extended release 24hr 150 mg PO DAILY Patient Comments: TAKE 1 CAPSULE BY MOUTH EVERY DAY ondansetron 4 mg tablet,disintegrating 4 mg PO Q8H PRN (Reason: nausea and vomiting) 7 Days Qty: 21 0RF estradiol 1 mg tablet 1 mg PO DAILY Primary Care Provider: Mike Hawley Referrals: Mike Hawley MD [Primary Care Provider, Family Practice] Activity Restrictions/Additional Instructions: Use prescriptions as prescribed sent to the pharmacy. Also use Aleve, Advil, ibuprofen etc. these are the same drugs for pain control when you do this you can take something every 6 hours. Max dose of ibuprofen in 24 hours 3200 mg. Follow-up your doctor. Your blood work did not show any acute findings and your CT did not show anything surgical going on. Print Language: Surinamese Disposition Disposition: Home, Self Care
--- NOTE | 2024-12-08 21:55 | CT_ITS ---
PROCEDURE: CT ABDOMEN/PELVIS W IV CONT ONLY 12/08/2024 REASON FOR EXAM: LLQ PAIN TECHNIQUE: Procedure Code: [id number] Modality: CT Procedure: ABDOMEN/PELVIS W IV CONT ONLY Coronal and Sagittal reconstruction series were provided. CONTRAST: Isovue 370 VOLUME: 95 mL One or more dose reduction techniques were used (e.g., Automated exposure control, adjustment of the mA and/or kV according to patient size, use of iterative reconstruction technique. RADIATION DOSE SUMMARY: DLP: 1442.4 mGycm COMPARISON: None. FINDINGS: Lung bases: Clear. Liver: No significant abnormality. Gallbladder: Unremarkable Spleen: Unremarkable. Pancreas: Unremarkable. Adrenals: Unremarkable. Kidneys: Symmetric enhancement. No urolithiasis or hydroureteronephrosis. There is urothelial enhancement on the left suggestive of left ureteritis/pyelitis. No discrete evidence for associated pyelonephritis on this exam. Few bilateral tiny simple appearing renal cysts. Bladder: Underdistended, probably with circumferential bladder wall thickening. Reproductive Organs: Status post hysterectomy. Small simple appearing left ovarian cyst/dominant follicle measuring up to 2.7 cm. No follow-up indicated. Bowel: No obstruction or active inflammatory process. Normal appendix. Lymph nodes: No enlarged abdominopelvic lymph nodes. Vasculature: Normal caliber abdominal aorta and IVC. Peritoneum / Retroperitoneum: No ascites or free air. Bones: Mild degenerative changes of the visualized spine. CT/Abdomen/Pelvis W IV Cont ONLY IMPRESSION: Evidence of cystitis and left ureteritis/pyelitis. No discrete evidence for py elonephritis, although this is primarily a clinical diagnosis. Correlate with laboratory/urinalysis findings. Reading Location: [id number]
[2024-12-08 22:41] LABS: Red Blood Cells-Urine 25-50 SEEN /hpf (0-5)
[2024-12-08 22:44] LABS: Squamous Epithelial Cells - UA 10-25 SEEN /hpf (5-10)
[2024-12-08] MEDS: Potassium Chloride Oral Soln 20 MEQ/15 ML UDC 40 MEQ PO (23:23)
[2024-12-08 23:31] VITALS: BP 136/92; PULSE 77; RESP 18; TEMP 36.6; O2SAT 98
== END 2024-12-08 23:33 | disposition home or self-care (01) ==
PROVIDERS: Emergency Provider Emergency Medicine; PCP Family Medicine; Visit Provider Emergency Medicine
DX: R10.32 Left lower quadrant pain (principal); Z90.710 Acquired absence of both cervix and uterus; Z79.899 Other long term (current) drug therapy; F41.9 Anxiety disorder, unspecified; Z86.69 Personal history of other diseases of the nervous system and sense organs
CPT/HCPCS: 74177; 80053; 81001; 83690; 85025; 87086; 87088; 96374; 96375; 99285; Q9967; A4216; J2405

== ENCOUNTER → 2025-01-19 | Outpatient (CLI) | payer OTHER, SELFPAY ==
[2025-01-19 10:58] LABS: Anion Gap 12 (5-15); BUN 16 mg/dL (4-19); BUN/Creat Ratio 25.5 RATIO (10-20); Calcium,Total 9.5 mg/dL (7.6-11.0); Carbon Dioxide 25.8 mmol/L (21.0-32.0); Chloride 101 mmol/L (98-108); Glucose 91 mg/dL (70-99); Potassium 3.4 mmol/L (3.3-5.1); Vitamin D,25 Hydroxy 27.0 ng/mL (30-100)
== END | disposition home or self-care (01) ==
LOC: MTLAB 07:57
PROVIDERS: PCP Family Medicine; Referring Provider Family Medicine; Visit Provider Family Medicine
DX: E87.6 Hypokalemia (principal); E66.01 Morbid (severe) obesity due to excess calories; E55.9 Vitamin D deficiency, unspecified
CPT/HCPCS: 36415; 80048; 82306; 84443